=== PATIENT | male | born 1995 | race Caucasian/White ===

== ENCOUNTER 2018-10-02 10:53 | Observation (INO) | payer OTHER ==
[2018-10-02] VITALS (9 sets, daily range): BP systolic 102–137; BP diastolic 55–87
[~2018-10-02] VITALS: Ht 177.8 cm; Wt 93.1 kg
[2018-10-02] MEDS ORDERED: LACTATED RINGERS 1,000 ML IV ONE (10:58)
[2018-10-02] MEDS: LACTATED RINGERS 1,000 ML IV SCH ×2 (11:10→12:30)
--- NOTE | 2018-10-02 11:10 | ED General ---
General Chief Complaint: Glucose Problems Stated Complaint: VOMITING Source of Information: Patient Exam Limitations: No Limitations History of Present Illness Date Seen by Provider: Oct 02, 2018 Time Seen by Provider: 11:08 Initial Comments To ER with reports of nausea vomiting high blood sugar. He is a type I diabetic with insulin pump. Symptoms began today. States that his sugars typically run in the 150s to 100 range. His heel molder is at [facility], he lives in [facility], does not have primary care. Timing/Duration: 1-2 Days Severity: Moderate Associated Systoms: Nausea/Vomiting Allergies and Home Medications Allergies Coded Allergies: No Known Drug Allergies (Unverified , 10/02/18) Patient Home Medication List Home Medication List Reviewed: Yes Review of Systems Review of Systems Constitutional: see HPI EENTM: see HPI Respiratory: no symptoms reported Cardiovascular: no symptoms reported Gastrointestinal: nausea Genitourinary: no symptoms reported Musculoskeletal: no symptoms reported Skin: no symptoms reported Psychiatric/Neurological: No Symptoms Reported Hematologic/Lymphatic: No Symptoms Reported Immunological/Allergic: no symptoms reported Physical Exam Vital Signs Vital Signs - First Documented 10/02/18 11:12 Temp 97.2 Pulse 101 Resp 18 B/P (MAP) 122/67 (85) Pulse Ox 98 O2 Delivery Room Air Capillary Refill : Height, Weight, BMI Height: '" Weight: lbs. oz. kg; BMI Method: General Appearance: No Apparent Distress, WD/WN, Other (alert and oriented, no tachypnea) Eyes: Bilateral Eye Normal Inspection, Bilateral Eye PERRL HEENT: PERRL/EOMI Neck: Full Range of Motion, Normal Inspection Respiratory: No Accessory Muscle Use, No Respiratory Distress Cardiovascular: Normal Peripheral Pulses, Tachycardia (105) Gastrointestinal: Normal Bowel Sounds, Non Tender, Soft Extremity: Normal Capillary Refill, Normal Inspection, Other (examination of the feet reveals a infected ingrown toenail of the lateral aspect of the great toe on the left. States he's been dealing with this for a while. Culture was collected.) Neurologic/Psychiatric: Alert, Oriented x3 Skin: Normal Color, Warm/Dry Progress/Results/Core Measures Suspected Sepsis SIRS Temperature: Pulse: Respiratory Rate: Laboratory Tests 10/02/18 10:05: White Blood Count 11.2H Blood Pressure / Mean: Laboratory Tests 10/02/18 10:05: Creatinine 1.45H, Platelet Count 243, Total Bilirubin 0.9 Results/Orders Lab Results Laboratory Tests Test 10/02/18 10:05 10/02/18 11:01 Range/Units White Blood Count 11.2 H 4.3-11.0 10^3/uL Red Blood Count 4.90 4.35-5.85 10^6/uL Hemoglobin 15.4 13.3-17.7 G/DL Hematocrit 45 40-54 % Mean Corpuscular Volume 91 80-99 FL Mean Corpuscular Hemoglobin 31 25-34 PG Mean Corpuscular Hemoglobin Concent 35 32-36 G/DL Red Cell Distribution Width 12.7 10.0-14.5 % Platelet Count 243 130-400 10^3/uL Mean Platelet Volume 10.4 7.4-10.4 FL Neutrophils (%) (Auto) 84 H 42-75 % Lymphocytes (%) (Auto) 8 L 12-44 % Monocytes (%) (Auto) 8 0-12 % Eosinophils (%) (Auto) 0 0-10 % Basophils (%) (Auto) 0 0-10 % Neutrophils # (Auto) 9.4 H 1.8-7.8 X 10^3 Lymphocytes # (Auto) 0.9 L 1.0-4.0 X 10^3 Monocytes # (Auto) 0.9 0.0-1.0 X 10^3 Eosinophils # (Auto) 0.0 0.0-0.3 10^3/uL Basophils # (Auto) 0.0 0.0-0.1 10^3/uL Neutrophils % (Manual) 83 % Lymphocytes % (Manual) 8 % Monocytes % (Manual) 8 % Eosinophils % (Manual) 0 % Basophils % (Manual) 0 % Band Neutrophils 1 % Blood Morphology Comment NORMAL Sodium Level 130 L 135-145 MMOL/L Potassium Level 5.1 H 3.6-5.0 MMOL/L Chloride Level 93 L 98-107 MMOL/L Carbon Dioxide Level 15 L 21-32 MMOL/L Anion Gap 22 H 5-14 MMOL/L Blood Urea Nitrogen 19 H 7-18 MG/DL Creatinine 1.45 H 0.60-1.30 MG/DL Estimat Glomerular Filtration Rate > 60 BUN/Creatinine Ratio 13 Glucose Level 469 *H 70-105 MG/DL Calcium Level 10.4 H 8.5-10.1 MG/DL Corrected Calcium 8.5-10.1 MG/DL Total Bilirubin 0.9 0.1-1.0 MG/DL Aspartate Amino Transf (AST/SGOT) 20 5-34 U/L Alanine Aminotransferase (ALT/SGPT) 21 0-55 U/L Alkaline Phosphatase 132 40-136 U/L Total Protein 7.7 6.4-8.2 GM/DL Albumin 4.7 H 3.2-4.5 GM/DL Lipase < 4 L 8-78 U/L Beta-Hydroxybutyrate (Chem panel) 7.53 H 0.00-0.27 MMOL/L Glucometer 436 *H 70-110 MG/DL My Orders Orders - VIVI TEJADA APRN Cbc With Automated Diff (10/02/18 11:02) Comprehensive Metabolic Panel (10/02/18 11:02) Beta Hydroxybutyrate (10/02/18 11:02) Ua Culture If Indicated (10/02/18 11:02) Ed Iv/Invasive Line Start (10/02/18 11:02) Accucheck Stat ONCE (10/02/18 11:02) Lipase (10/02/18 11:02) Ondansetron Injection (Zofran Injectio (10/02/18 11:15) Lactated Ringers (Lr 1000 Ml Iv Solution (10/02/18 10:58) Manual Differential (10/02/18 10:05) Lactated Ringers (Lr 1000 Ml Iv Solution (10/02/18 11:30) Lr 1000 Ml Wide Open (10/02/18 12:00) Insulin (Regular) Human (Humulin R (Per (10/02/18 12:00) Insulin (Regular) Drip (10/02/18 12:00) Accucheck Stat ONCE (10/02/18 12:00) Medications Given in ED Current Medications Medications Dose Ordered Sig/Sanna Route Start Time Stop Time Status Last Admin Dose Admin Ondansetron HCl 8 mg ONCE ONCE IVP 10/02/18 11:15 10/02/18 11:16 DC 10/02/18 11:24 8 MG Vital Signs/I&O 10/02/18 11:12 Temp 97.2 Pulse 101 Resp 18 B/P (MAP) 122/67 (85) Pulse Ox 98 O2 Delivery Room Air Capillary Refill : Departure Communication (Admissions) Time/Spoke to Admitting Phy: 12:[address] Chen will admit, rehydrate, insulin drip. Advised him of the need for admission, at least overnight, it would be okay but he needs to be out of here for a court date tomorrow in [facility]. Impression Primary Impression: Diabetic ketoacidosis Qualified Codes: E10.10 - Type 1 diabetes mellitus with ketoacidosis without coma Additional Impression: Ingrown toenail of left foot with infection Disposition: ADMITTED INPATIENT Condition: Stable Admissions Decision to Admit Reason: Admit from ER (General) Decision to Admit/Date: Oct 02, 2018 Time/Decision to Admit Time: 11:50 VIVI TEJADA APRN Oct 02, 2018 11:10
[2018-10-02 11:15] LABS: BASOPHILS % (AUTO) 0 % (0-10); EOSINOPHILS % (AUTO) 0 % (0-10); HEMATOCRIT 45 % (40-54); HEMOGLOBIN 15.4 G/DL (13.3-17.7); LYMPHOCYTES # (AUTO) 0.9 X 10^3 (1.0-4.0); LYMPHOCYTES % (AUTO) 8 % (12-44); MEAN CORPUSCULAR HEMOGLOBIN 31 PG (25-34); MEAN CORPUSCULAR HGB CONC 35 G/DL (32-36); MEAN CORPUSCULAR VOLUME 91 FL (80-99); MEAN PLATELET VOLUME 10.4 FL (7.4-10.4); MONOCYTES # (AUTO) 0.9 X 10^3 (0.0-1.0); MONOCYTES % (AUTO) 8 % (0-12); NEUTROPHILS # (AUTO) 9.4 X 10^3 (1.8-7.8); NEUTROPHILS % (AUTO) 84 % (42-75); PLATELET COUNT 243 10^3/uL (130-400); RED CELL DISTRIBUTION WIDTH 12.7 % (10.0-14.5); WHITE BLOOD COUNT 11.2 10^3/uL (4.3-11.0)
[2018-10-02] MEDS ORDERED: ONDANSETRON 4 MG/2 ML (SDV) Z0FRAN IVP ONE (11:15)
[2018-10-02 11:39] LABS: ALANINE AMINOTRANSFERASE 21 U/L (0-55); ALBUMIN 4.7 GM/DL (3.2-4.5); ALKALINE PHOSPHATASE 132 U/L (40-136); BILIRUBIN,TOTAL 0.9 MG/DL (0.1-1.0); BUN/CREATININE RATIO 13; CALCIUM 10.4 MG/DL (8.5-10.1); CARBON DIOXIDE 15 MMOL/L (21-32); CHLORIDE 93 MMOL/L (98-107); CREATININE SERUM 1.45 MG/DL (0.60-1.30); GFR ESTIMATED > 60; LIPASE < 4 U/L (8-78); POTASSIUM 5.1 MMOL/L (3.6-5.0); SODIUM 130 MMOL/L (135-145); TOTAL PROTEIN 7.7 GM/DL (6.4-8.2)
[2018-10-02 11:40] LABS: GLUCOSE 469 MG/DL (70-105)
[2018-10-02] MEDS ORDERED: PAMI30VI8 SQ (11:44)
[2018-10-02 11:46] LABS: BAND NEUTROPHILS 1 %; LYMPHOCYTES % (MANUAL) 8 %; NEUTROPHILS % (MANUAL) 83 %
[2018-10-02 11:47] LABS: BASOPHILS % (MANUAL) 0 %; EOSINOPHILS % (MANUAL) 0 %; MONOCYTES % (MANUAL) 8 %; RBC MORPH NORMAL
[2018-10-02] MEDS ORDERED: inSUlin (REGULAR) HUMAN 1 UNIT/0.01 ML (CHARGE PER UNIT) IV SCH (12:00)
[2018-10-02] MEDS ORDERED: inSUlin REGULAR TPN/DRIP ONLY 250 UNITS in NORMAL SALINE 250 ML IV SCH ×2 (12:00→13:45)
[2018-10-02] MEDS ORDERED: LACTATED RINGERS 1,000 ML IV SCH (12:00)
[2018-10-02] MEDS ORDERED: IBUPROFEN 800 MG (MOTRIN) TAB PO ONE (12:15)
[2018-10-02 12:24] LABS: BILIRUBIN,URINE NEGATIVE (NEGATIVE); CLARITY,URINE CLEAR; COLOR,URINE YELLOW; GLUCOSE, URINE (UA) 4+ (NEGATIVE); KETONES,URINE 4+ (NEGATIVE); LEUKOCYTE ESTERASE ,URINE NEGATIVE (NEGATIVE); NITRITE,URINE NEGATIVE (NEGATIVE); PH,URINE 5 (5-9); PROTEIN,URINE 1+ (NEGATIVE); UROBILINOGEN,URINE NORMAL (NORMAL)
[2018-10-02] MEDS ORDERED: LIDOCAINE 2% VISCOUS 15 ML UDC PO ONE (12:30)
[2018-10-02] MEDS ORDERED: ANTACID SUSP 30 ML UDC (MYLANTA) PO ONE (12:30)
[2018-10-02 12:45] LABS: BACTERIA,URINE NEGATIVE /HPF; SQUAMOUS EPITHELIAL CELL,UR RARE /HPF
[2018-10-02] MEDS ORDERED: NS IV 1000 ML 1,000 ML IV SCH (13:31)
[2018-10-02] MEDS ORDERED: POTASSIUM CL 10MEQ/50ML IVPB 50 ML IV SCH (13:45)
[2018-10-02] MEDS ORDERED: IBUPROFEN 600 MG (MOTRIN) TAB PO PRN (13:45)
[2018-10-02] MEDS ORDERED: ACETAMINOPHEN 500 MG TAB (TYLENOL) PO PRN (13:45)
[2018-10-02] MEDS: 1/2 NS IV SOLUTION 1,000 ML IV SCH ×2 (13:52→19:50)
[2018-10-02] MEDS: POTASSIUM CL 10MEQ/50ML IVPB 50 ML IV SCH ×3 (13:57→23:43)
[2018-10-02] MEDS: CEPHALEXIN 250 MG (KEFLEX) CAP PO SCH ×2 (14:59→21:34)
--- NOTE | 2018-10-02 15:00 | Pulmonary Consultation ---
History of Present Illness History of Present Illness Date of Consultation 10/02/18 14:56 Time Seen by Provider: 14:56 Date of Admission History of Present Illness 23yo with hx of IDDM presented to ED secondary to hyperglycemia. Pt uses an insulin pump at home. His supply requirements officer is at [facility], he lives in [facility], does not have primary care. Allergies and Home Medications Allergies Coded Allergies: No Known Drug Allergies (Unverified , 10/02/18) Home Medications Insulin Lispro 100 Unit/1 Ml Vial, SQ PER INSULIN PUMP, (Reported) LAST FILLED 07-05-18 Past Zktfcbz-Kxxfoz-Vysasf Hx Patient Social History Alcohol Use: Rarely Uses Recreational Drug Use: No Smoking Status: Never a Smoker 2nd Hand Smoke Exposure: No Recent Foreign Travel: No Contact w/Someone Who Travel: No Recent Infectious Disease Expo: No Recent Hopitalizations: No Physical Abuse: No Sexual Abuse: No Mistreated: No Fear: No Seasonal Allergies Seasonal Allergies: No Past Medical History Surgeries: No Respiratory: No Cardiac: No Neurological: No Genitourinary: No Gastrointestinal: No Musculoskeletal: No Endocrine: Yes Diabetes, Insulin dep HEENT: No Cancer: No Psychosocial: No Integumentary: No Blood Disorders: No Review of Systems Time Seen by Provider: 15:00 Constitutional: Weakness, Malaise; No: Fever, Chills, Sweats, Other Eyes: No: Pain, Vision change, Conjunctivae inflammation, Eyelid inflammation, Other, Redness ENT: No: Ear pain, Ear discharge, Nose pain, Nose discharge, Nose congestion, Mouth pain, Mouth swelling, Throat pain, Throat swelling, Other Respiratory: No: Cough, Dry, Shortness of breath, SOB with excertion, Wheezing, Hemoptysis, Pleuritic Pain, Sputum, Wheezing, Other Cardiovascular: No: Chest Pain, Palpitations, Orthopnea, Paroxysmal Noc. Dyspnea, Edema, Lt Headedness, Other Gastrointestinal: Nausea Neurological: Weakness Sepsis Event Evaluation Height, Weight, BMI Height: 5'10.00" Weight: 210lbs. 8.0oz. 95.414329xh; 30.2 BMI Method:Stated Exam Exam Vital Signs Date Time Temp Pulse Resp B/P (MAP) Pulse Ox O2 Delivery O2 Flow Rate FiO2 10/02/18 14:00 98 14 102/57 (72) 99 Room Air 10/02/18 13:32 82 10/02/18 13:16 Room Air 10/02/18 13:00 92 15 121/67 (85) 100 Room Air 10/02/18 12:43 97.2 101 18 117/70 (86) 98 10/02/18 11:12 97.2 101 18 122/67 (85) 98 Room Air Height & Weight Height: 5'10.00" Weight: 210lbs. 8.0oz. 95.989311db; 30.2 BMI Method:Stated General Appearance: No Apparent Distress, WD/WN, Other (alert and oriented, no tachypnea) HEENT: PERRL/EOMI Neck: Full Range of Motion, Normal Inspection Respiratory: No Accessory Muscle Use, No Respiratory Distress Cardiovascular: Normal Peripheral Pulses, Tachycardia (105) Capillary Refill: Less Than 3 Seconds Extremity: Normal Capillary Refill, Normal Inspection, Other (examination of the feet reveals a infected ingrown toenail of the lateral aspect of the great toe on the left. States he's been dealing with this for a while. Culture was collected.) Neurologic/Psychiatric: Alert, Oriented x3 Skin: Normal Color, Warm/Dry Results Lab Laboratory Tests 10/02/18 10:05 Assessment/Plan Assessment/Plan DKA -DKA protocol -Insulin gtt Hyperkalemia -Monitor Acute renal failure -IVF Acute dehydration -Monitor Ingrown toenail of left foot with infection -currently on Keflex and BCTM DAISY WRIGHT DO Oct 02, 2018 15:00
[2018-10-02] MEDS ORDERED: INSU100V SQ (15:07)
--- NOTE | 2018-10-02 15:07 | NUR ---
PATIENT STATES HE USES HUMALOG INSULIN. HE STATES 40-60 UNITS PER DAY. WHEN I ASKED IF HE SPREADS THAT OUT HE STATES 10-20 WITH MEALS HOWEVER WHEN I CALLED [facility] IN [place] TO VERIFY THE LAST FILLED DATE THE DIRECTIONS ARE 100 UNITS DAILY PER PUMP. THEY HAVE A SCRIPT READY FOR HIM NOW HOWEVER IT HAS NOT BEEN PICKED UP, IT WAS LAST PICKED UP 07-05-18.
[2018-10-02] MEDS ORDERED: NICOTINE 21 MG (NICODERM) PATCH TD NR (15:45)
[2018-10-02 16:26] LABS: BUN/CREATININE RATIO 15; CALCIUM 9.5 MG/DL (8.5-10.1); CARBON DIOXIDE 17 MMOL/L (21-32); CHLORIDE 96 MMOL/L (98-107); CREATININE SERUM 1.17 MG/DL (0.60-1.30); GFR ESTIMATED > 60; GLUCOSE 283 MG/DL (70-105); POTASSIUM 4.6 MMOL/L (3.6-5.0); SODIUM 131 MMOL/L (135-145)
[2018-10-02 16:42] LABS: BUN/CREATININE RATIO 16; CALCIUM 8.8 MG/DL (8.5-10.1); CARBON DIOXIDE 19 MMOL/L (21-32); CHLORIDE 98 MMOL/L (98-107); CREATININE SERUM 1.17 MG/DL (0.60-1.30); GFR ESTIMATED > 60; GLUCOSE 360 MG/DL (70-105); POTASSIUM 4.6 MMOL/L (3.6-5.0); SODIUM 129 MMOL/L (135-145)
--- NOTE | 2018-10-02 17:07 | Progress Note - Hospitalist ---
Progress Note Progress Notes/Assess & Plan Date Seen 10/02/18 Time Seen by Provider: 17:02 Assessment & Plan The patient is a 23-year-old diabetic. He was diagnosed at age 17. He uses a pump. He has been struggling with an ingrown toenail on the left great toe for perhaps a month. He believes perhaps this has taken his insulin out of balance. He reported he tried to manage this at home as he has done many times before but after taking fluids he would then vomit. He had increased his meal-related boluses slightly but had not been able to control his sugar. On arrival in the emergency room he had blood sugars in the mid 400s. He had a modest elevation of his anion gap. Physical exam: He is alert and oriented. There are no odors of ketones. Lungs are clear to auscultation he is not tachypneic. CV is regular. Abdomen is soft. The left lower extremity shows a modest swelling on the lateral aspect of the left great toenail and toe. Impression: Diabetic ketoacidosis. 2.ingrown left great toenail. Plan: Insulin drip with boluses as needed. Rehydration with normal saline. ABDON CORBETT MD Oct 02, 2018 5:06 pm
[2018-10-02] MEDS: TRIM/SULFAMETH 160/800 (SEPTRA DS) TAB PO SCH (18:48)
[2018-10-02 20:47] LABS: BUN/CREATININE RATIO 18; CALCIUM 8.7 MG/DL (8.5-10.1); CARBON DIOXIDE 20 MMOL/L (21-32); CHLORIDE 100 MMOL/L (98-107); CREATININE SERUM 1.25 MG/DL (0.60-1.30); GFR ESTIMATED > 60; GLUCOSE 247 MG/DL (70-105); SODIUM 131 MMOL/L (135-145)
--- NOTE | 2018-10-02 21:00 | NUR ---
Patient stated his IV was leaking. This RN noted it wouldn't flush, attempted to reposition with no luck. Patient has already had 4 IV attempts this admission with no luck. Patient states that needs something to help relax before an IV can be restarted. EICU contacted and order received to give 0.25 xanax PO x 1 dose.
[2018-10-02] MEDS ORDERED: ALPRAZolam 0.25 MG (XANAX) TAB PO ONE (21:30)
[2018-10-03] VITALS (15 sets, daily range): BP systolic 94–129; BP diastolic 49–84
--- NOTE | 2018-10-03 01:40 | NUR ---
Patient c/o coughing and throwing up along with heartburn. Requests medication for the cough and tums for the indegestion. EICU notified and received orders.
[2018-10-03] MEDS ORDERED: guaiFENesin/DM (ROBITUSSIN DM) 10 ML UDC PO PRN (01:45)
[2018-10-03] MEDS: POTASSIUM CL 10MEQ/50ML IVPB 50 ML IV SCH ×3 (01:57→06:46)
[2018-10-03] MEDS: D5 1/2 NS 1000 ML IV SOLUTION 1,000 ML IV SCH ×2 (01:57→06:05)
[2018-10-03] MEDS: ONDANSETRON 4 MG/2 ML (SDV) Z0FRAN IV PRN ×2 (01:57→05:43)
[2018-10-03] MEDS ORDERED: guaiFENesin/DM (ROBITUSSIN DM) 10 ML UDC ONE (02:12)
[2018-10-03] MEDS ORDERED: CALCIUM CARBONATE 500 MG (TUMS) TAB.CHEW ONE (02:12)
[2018-10-03] MEDS: CALCIUM CARBONATE 500 MG (TUMS) TAB.CHEW PO PRN ×3 (02:48→14:18)
[2018-10-03 03:30] LABS: BASOPHILS % (AUTO) 0 % (0-10); EOSINOPHILS # (AUTO) 0.1 10^3/uL (0.0-0.3); EOSINOPHILS % (AUTO) 2 % (0-10); HEMATOCRIT 40 % (40-54); HEMOGLOBIN 13.9 G/DL (13.3-17.7); LYMPHOCYTES # (AUTO) 1.9 X 10^3 (1.0-4.0); LYMPHOCYTES % (AUTO) 27 % (12-44); MEAN CORPUSCULAR HEMOGLOBIN 32 PG (25-34); MEAN CORPUSCULAR HGB CONC 35 G/DL (32-36); MEAN CORPUSCULAR VOLUME 91 FL (80-99); MEAN PLATELET VOLUME 10.4 FL (7.4-10.4); MONOCYTES # (AUTO) 0.8 X 10^3 (0.0-1.0); MONOCYTES % (AUTO) 11 % (0-12); NEUTROPHILS # (AUTO) 4.2 X 10^3 (1.8-7.8); NEUTROPHILS % (AUTO) 60 % (42-75); PLATELET COUNT 220 10^3/uL (130-400); RED CELL DISTRIBUTION WIDTH 12.8 % (10.0-14.5)
[2018-10-03 03:49] LABS: BUN/CREATININE RATIO 23; CALCIUM 8.2 MG/DL (8.5-10.1); CARBON DIOXIDE 21 MMOL/L (21-32); CHLORIDE 101 MMOL/L (98-107); CREATININE SERUM 1.11 MG/DL (0.60-1.30); GFR ESTIMATED > 60; GLUCOSE 207 MG/DL (70-105); MAGNESIUM 1.9 MG/DL (1.8-2.4); PHOSPHORUS 2.2 MG/DL (2.3-4.7); POTASSIUM 3.7 MMOL/L (3.6-5.0); SODIUM 132 MMOL/L (135-145)
[2018-10-03] MEDS: 1/2 NS IV SOLUTION 1,000 ML IV SCH ×2 (04:17→06:01)
[2018-10-03] MEDS ORDERED: ANTACID SUSP 30 ML UDC (MYLANTA) PO ONE (05:30)
[2018-10-03] MEDS ORDERED: LIDOCAINE 2% VISCOUS 15 ML UDC PO ONE (05:30)
[2018-10-03] MEDS: CEPHALEXIN 250 MG (KEFLEX) CAP PO SCH ×2 (05:43→14:14)
[2018-10-03] MEDS ORDERED: LIDOCAINE 2% VISCOUS 15 ML UDC ONE (05:44)
[2018-10-03] MEDS ORDERED: SODIUM PHOSPHATE INJ 30 MM in NS (IVPB) 250 ML IV ONE (05:45)
--- NOTE | 2018-10-03 07:10 | Pulmonary Progress Note ---
Subjective Time Seen by a Provider: 07:06 Subjective/Events-last exam Pt complains of heart burn and vomiting. Denies CP or abdominal pain. Sepsis Event Evaluation Height, Weight, BMI Height: 5'10.00" Weight: 205lbs. 5.0oz. 93.673712jc; 30.2 BMI Method:Stated Exam Exam Vital Signs Date Time Temp Pulse Resp B/P (MAP) Pulse Ox O2 Delivery O2 Flow Rate FiO2 10/03/18 06:00 84 18 99/61 (74) 98 Room Air 10/03/18 05:00 71 16 121/68 (85) 98 Room Air 10/03/18 04:00 Room Air 10/03/18 04:00 89 16 101/72 (82) 100 Room Air 10/03/18 04:00 98.4 10/03/18 03:00 82 23 110/53 (72) 99 Room Air 10/03/18 02:00 71 23 129/84 (99) 98 Room Air 10/03/18 01:00 82 15 110/74 (86) 99 Room Air 10/03/18 01:00 96 10/03/18 00:00 98.2 10/03/18 00:00 73 94/50 (65) 99 Room Air 10/03/18 00:00 Room Air 10/02/18 23:00 84 24 98 Room Air 10/02/18 22:00 80 23 123/55 (77) 98 Room Air 10/02/18 21:00 82 22 118/67 (84) 99 Room Air 10/02/18 20:00 97.5 90 22 134/70 (91) 99 Room Air 10/02/18 20:00 Room Air 10/02/18 19:00 92 22 134/70 (91) 96 Room Air 10/02/18 19:00 95 10/02/18 18:00 109 15 Room Air 10/02/18 17:00 111 17 125/66 (85) Room Air 10/02/18 16:00 98.3 87 19 130/64 (86) 100 Room Air 10/02/18 16:00 98 33 137/59 (85) Room Air 10/02/18 15:40 94 Room Air 10/02/18 15:00 96 18 123/87 (99) Room Air 10/02/18 14:00 98 14 102/57 (72) 99 Room Air 10/02/18 13:32 82 10/02/18 13:16 Room Air 10/02/18 13:00 92 15 121/67 (85) 100 Room Air 10/02/18 12:43 97.2 101 18 117/70 (86) 98 10/02/18 11:12 97.2 101 18 122/67 (85) 98 Room Air I & O 10/03/18 07:00 Intake Total 4820 ml Output Total 3965 ml Balance 855 ml Height & Weight Height: 5'10.00" Weight: 205lbs. 5.0oz. 93.366612ql; 30.2 BMI Method:Stated General Appearance: No Apparent Distress, WD/WN, Other (alert and oriented, no tachypnea) HEENT: PERRL/EOMI Neck: Full Range of Motion, Normal Inspection Respiratory: No Accessory Muscle Use, No Respiratory Distress Cardiovascular: Normal Peripheral Pulses, Tachycardia (105) Capillary Refill: Less Than 3 Seconds Extremity: Normal Capillary Refill, Normal Inspection, Other (examination of the feet reveals a infected ingrown toenail of the lateral aspect of the great toe on the left. States he's been dealing with this for a while. Culture was collected.) Neurologic/Psychiatric: Alert, Oriented x3 Skin: Normal Color, Warm/Dry Results Lab Laboratory Tests 10/02/18 10:05 10/02/18 13:45 10/02/18 16:15 10/02/18 20:07 10/03/18 03:00 Assessment/Plan Assessment/Plan DKA -GIve levemir 15 units x 1 then D/c insulin gtt 2 hours after. -DKA protocol -Insulin gtt GERD with nausea -Will give GI cock tail x 1 Hyperkalemia -Monitor Acute renal failure -IVF Acute dehydration -Monitor Ingrown toenail of left foot with infection -currently on Keflex and BCTM DAISY WRIGHT DO Oct 03, 2018 07:10
--- NOTE | 2018-10-03 07:21 | Diagnostic Imaging Report ---
INDICATION: Diabetic ketoacidosis comminuted mentioned. FINDINGS: A portable upright view of the chest demonstrates lungs to be clear. The heart, mediastinum, pulmonary vascularity and visualized bony thorax are normal. IMPRESSION: Normal chest. Dictated by: Dictated on workstation # [id number]
[2018-10-03] MEDS: TRIM/SULFAMETH 160/800 (SEPTRA DS) TAB PO SCH (08:24)
[2018-10-03] MEDS ORDERED: PATCH REMOVAL TP SCH (08:59)
[2018-10-03] MEDS ORDERED: NICOTINE 21 MG (NICODERM) PATCH TD SCH (09:00)
--- NOTE | 2018-10-03 10:45 | NUR ---
Pastoral care visit.
--- NOTE | 2018-10-03 15:48 | Short Stay Summary-Hospitalist ---
History of Present Illness HPI/Chief Complaint The patient is a 23-year-old white male who has been diabetic since he was 18. He has previously seen an corporate giving manager in the [facility] system. He has an insulin pump. He had begun to feel ill the day prior to admission. He has had an ingrown toenail on his left great toe for perhaps a month and it has become more inflamed over the past week or so. He was acidotic and had a blood sugar in the 450 range at admission. He has now improved greatly and has been able to eat his blood sugars are running in the 160-200 range by a large. That has been his previous target it was discussed that as a juvenile 120-150 would be a better target range and he will attempt to do so. Source: patient Exam Limitations: no limitations Date Seen 10/03/18 Time Seen by a Provider: 15:43 Attending Physician Toñito Corbett MD PCP No,Local Physician Referring Physician Date of Admission Oct 02, 2018 at 12:17 Home Medications & Allergies Home Medications Reviewed patient Home Medication Reconciliation performed by pharmacy medication reconciliations environmental field technician and/or nursing. Patients Allergies have been reviewed. Allergies Allergies Coded Allergies No Known Drug Allergies (Unverified10/02/18) Past Ologvlv-Huinsy-Vzuruj Hx Past Med/Social Hx: Reviewed Nursing Past Med/Soc Hx Patient Social History Alcohol Use: Rarely Uses Recreational Drug Use: No Smoking Status: Never a Smoker 2nd Hand Smoke Exposure: No Recent Foreign Travel: No Contact w/other who traveled: No Recent Hopitalizations: No Recent Infectious Disease Expo: No Seasonal Allergies Seasonal Allergies: No Past Medical History Endocrine: Diabetes, Insulin dep History of Blood Disorders: No Review of Systems Constitutional: see HPI EENTM: no symptoms reported Respiratory: no symptoms reported Cardiovascular: no symptoms reported Gastrointestinal: nausea, vomiting Genitourinary: frequency Musculoskeletal: no symptoms reported Skin: no symptoms reported Psychiatric/Neurological: No Symptoms Reported Physical Exam Physical Exam Vital Signs Vital Signs - First Documented 10/02/18 11:12 Temp 97.2 Pulse 101 Resp 18 B/P (MAP) 122/67 (85) Pulse Ox 98 O2 Delivery Room Air Capillary Refill : Less Than 3 Seconds Height, Weight, BMI Height: 5'10.00" Weight: 205lbs. 5.0oz. 93.796750mx; 30.2 BMI Method:Stated General Appearance: No Apparent Distress, WD/WN, Other (alert and oriented, no tachypnea) Eyes: Bilateral Eye Normal Inspection, Bilateral Eye PERRL HEENT: PERRL/EOMI Neck: Full Range of Motion, Normal Inspection Respiratory: No Accessory Muscle Use, No Respiratory Distress Cardiovascular: Normal Peripheral Pulses, Tachycardia (105) Gastrointestinal: Normal Bowel Sounds, Non Tender, Soft Extremity: Normal Capillary Refill, Normal Inspection, Other (examination of the feet reveals a infected ingrown toenail of the lateral aspect of the great toe on the left. States he's been dealing with this for a while. Culture was collected.) Neurologic/Psychiatric: Alert, Oriented x3 Skin: Normal Color, Warm/Dry Comments The left great toe shows ingrowth at the margin on the lateral aspect of the great toe. The flesh is tender and erythematous. The left corner is covered proud flesh. Results Results/Procedures Labs Laboratory Tests 10/02/18 10:05 10/02/18 13:45 10/02/18 16:15 10/02/18 20:07 10/03/18 03:00 Patient resulted labs reviewed. Short Stay Diagnosis Discharge Diagnosis-Short Stay Admission Diagnosis Nausea and vomiting. 2.mild ketoacidosis. Final Discharge Diagnosis Hyperglycemia and mild ketoacidosis, now resolved. 2.type I diabetes Conclusion Plan Discharge Clinical Quality Measures DVT/VTE Risk/Contraindication: Risk Factor Score Per Nursin RFS Level Per Nursing on Admit: 1=Low/No VTE PPX TOÑITO CORBETT MD Oct 03, 2018 15:48
[2018-10-03] MEDS ORDERED: Trimethoprim/Sulfamethoxazole PO (15:51)
--- NOTE | 2018-10-03 15:55 | Discharge Inst-Simple/Standard ---
Discharge Inst-Standard Patient Instructions/Follow Up Plan of Care/Instructions/FU: Medications as listed on the discharge sequence. Daily treatment have left great toe as described to you Target your blood sugars to run between 120 and 150. Activity as Tolerated: Yes Discharge Diet: ADA Diet Planned Outpatient Orders/Ref. Pneu Vac Indicated: Yes ABDON CORBETT MD Oct 03, 2018 15:55
== END 2018-10-03 15:55 | disposition home or self-care (01) ==
LOC: ER 10:55 → ICU 12:17 → UNDOADMOB 12:17 → ICU 12:55 → UNDODISOB 10-03 16:45
PROVIDERS: ADMIT Internal Medicine; ATTEND Internal Medicine
DX: E11.10 Type 2 diabetes mellitus with ketoacidosis without coma (principal); E11.65 Type 2 diabetes mellitus with hyperglycemia; E87.5 Hyperkalemia; N17.9 Acute kidney failure, unspecified; E86.0 Dehydration; L60.0 Ingrowing nail; Z96.41 Presence of insulin pump (external) (internal); Z79.4 Long term (current) use of insulin
CPT/HCPCS: 36415; 71045; 80048; 80053; 81000; 82010; 82962; 83690; 83735; 84100; 85007; 85025; 85027; 87070; 87077; 87081; 87186; 87205; 96361; 96374; 96375; G0378